=== PATIENT | female | born 1985 | race Caucasian/White ===

== ENCOUNTER 2016-03-12 21:27 | Outpatient (CLI) | payer BC ==
[~2016-03-12] VITALS: Ht 170.2 cm; Wt 100.0 kg
[2016-03-12 21:40] VITALS: BP 136/76
== END 2016-03-12 22:40 | disposition home or self-care (01) ==
LOC: M LDO 21:27
PROVIDERS: ATTEND Advanced Practice Midwife
DX: O26.893 Other specified pregnancy related conditions, third trimester (principal); N89.8 Other specified noninflammatory disorders of vagina; R10.2 Pelvic and perineal pain; Z3A.37 37 weeks gestation of pregnancy

== ENCOUNTER 2016-03-17 18:18 | Inpatient (IN) | payer BC ==
[~2016-03-17] VITALS: Ht 170.2 cm; Wt 102.0 kg
[2016-03-17] MEDS ORDERED: LR 1,000 ML IV SCH (18:28)
[2016-03-17] MEDS ORDERED: LACTATED RINGER'S 1000 ML IV STA (18:28)
--- NOTE | 2016-03-17 19:16 | HPE ---
DATE OF ADMISSION: 03/17/2016 30-year-old 1, estimated date of delivery 03/17/2016 presents at 40 weeks with reports of uterine contractions since 0530. Spontaneous rupture of membranes, clear fluid at 1700. Denies bleeding. Fetus is active. Last normal menstrual period 06/11/2015 for SIN of 03/17/2016. Sonogram at 8 weeks confirmed date. Anatomy scan within normal limits. ALLERGIES: No known drug allergies. MEDICAL-SURGICAL HISTORY: Anxiety, seasonal allergies and foot surgery. FAMILY HISTORY: Diabetes, multiple myeloma. SOCIAL HISTORY: . Father of the baby present and supportive. Denies tobacco, alcohol or drugs. OBJECTIVE: Prepregnancy weight 172, total weight gain 60 pounds. A+, antibody negative, rubella immune, VDRL, hepatis B, hepatitis C, HIV, gonorrhea, Chlamydia all negative. Quad screen normal. 1-hour glucose 141. 3-hour within normal limits. 89, 171, 63 and 83. Group B strep is negative. Vital signs are stable. She is very uncomfortable. Heart rate is regular. Breathing with contractions. Abdomen is soft, gravid, longitudinal lie. Contractions every 3 minutes for 90 seconds and moderate. heart 120, minimal to moderate variability. Cervix is 7 cm, 100%, zero station, clear fluid draining per vagina. ASSESSMENT: Primipara at term, spontaneous rupture of membranes, active labor, category two tracing. PLAN: Admit. The patient plans epidural. Close observation. Anticipate vaginal delivery.
[2016-03-17 19:17] LABS: MEAN CORPUSCULAR HEMOGLOBIN 26.4 pg (27.0-33.0); MEAN CORPUSCULAR HGB CONC 33.3 g/dl (32.0-36.5); MEAN CORPUSCULAR VOLUME 79.2 fl (80.0-96.0); RED CELL DISTRIBUTION WIDTH 15.5 % (11.5-14.5)
[2016-03-17] MEDS ORDERED: OXYTOCIN 30 UNITS IN 0.9% NaCl 500ML IV BAG (J2590) As Ordered ONE (19:23)
[2016-03-17] MEDS ORDERED: RANI1TAB38 PO (19:36)
[2016-03-17] MEDS ORDERED: OXYTOCIN DRIP 30 UNITS in APPROPRIATE DILUENT 1 EA IV SCH (20:49)
[2016-03-17] MEDS ORDERED: METHYLERGONOVINE MALEATE 0.2 MG TAB PO PRN (21:00)
[2016-03-17] MEDS ORDERED: RHOGAM 300 MCG (1500 IU) INJ (J2790) IM SCH (21:00)
[2016-03-17] MEDS ORDERED: ACETAMINOPHEN 500 MG TAB PO PRN (21:00)
[2016-03-17] MEDS ORDERED: DOCUSATE SODIUM 100 MG CAP PO PRN (21:00)
[2016-03-17] MEDS ORDERED: DIBUCAINE 1% OINTMENT 30GM TOP PRN (21:00)
[2016-03-17] MEDS ORDERED: ANUSOL HC CREAM 30GM TOP PRN (21:00)
[2016-03-17] MEDS ORDERED: MOM 30ML SUSPENSION UDC PO PRN (21:00)
[2016-03-17] MEDS ORDERED: LIDOCAINE 1% MDV INJ 50 ML VIAL INFIL ONE (21:00)
[2016-03-17] MEDS ORDERED: MEASLES,MUMPS,RUBELLA VACCINE INJ (MMR-II) (90707) SC SCH (21:00)
[2016-03-17 21:54] LABS: CORD GAS ABE A -7.6; CORD GAS ABE V -9.7; CORD GAS HCO3 A 18.1 MEQ/L; CORD GAS HCO3 V 16.1 MEQ/L; CORD GAS O2 SAT A 84.3 %; CORD GAS O2 SAT V 83.6 %; CORD GAS PCO2 A 37.9 mmHg; CORD GAS PCO2 V 35.6 mmHg; CORD GAS PH A 7.297 UNITS; CORD GAS PH V 7.273 UNITS; CORD GAS PO2 A 44.6 mmHg; CORD GAS PO2 V 44.1 mmHg; CORD GAS SBC A 18.1 MEQ/L; CORD GAS SBC V 16.6 MEQ/L; CORD GAS TCO2 A 19.3 MEQ/L; CORD GAS TCO2 V 17.2 MEQ/L
[2016-03-17 22:06] VITALS: BP 136/80
[2016-03-17] MEDS: IBUPROFEN 800 MG TAB PO PRN (22:46)
--- NOTE | 2016-03-18 00:23 | DN ---
DATE: 03/17/2016 A 30-year-old 1, now para 1 at 40 weeks gestation, spontaneous rupture of membranes, clear fluid at 1700 hours. Rapid progress. Fully dilated 1907 hours. Viable male delivered, left occiput anterior (ZAC) after reduction of loose nuchal cord, compound with right anterior arm at 2010 hours. Spontaneous respirations. Transitioned on maternal abdomen. Cord doubly clamped and cut once pulsations ceased. scores 9 and 9. Cord gases were obtained. Placenta [place] and intact with a three-vessel cord at 2018 hours. Fundus firmed with massage and IV Pitocin bolus. Estimated blood loss 300 mL. Second-degree perineal laceration repaired after infiltration with lidocaine using #3-0 Vicryl Rapide. Bilateral labial abrasions tacked with a single suture of same material each. Sponge, sharp and instrument count correct. weight 7 pounds 12 ounces, 3516 grams. Mom and baby doing well.
[2016-03-18 06:34] VITALS: BP 116/64
[2016-03-18] MEDS: FAMOTIDINE 20 MG TAB PO SCH ×2 (08:43→21:56)
[2016-03-18] MEDS: IBUPROFEN 800 MG TAB PO PRN ×2 (08:43→18:04)
[2016-03-18] MEDS: PRENATAL VITAMIN TAB PO SCH (08:43)
[2016-03-18 18:00] VITALS: BP 139/79
[2016-03-19 05:42] VITALS: BP 125/65
[2016-03-19] MEDS: FAMOTIDINE 20 MG TAB PO SCH (08:42)
[2016-03-19] MEDS: PRENATAL VITAMIN TAB PO SCH (08:42)
[2016-03-19] MEDS ORDERED: ACET50TA PO (09:14)
[2016-03-19] MEDS ORDERED: IBUP-1114 PO (09:15)
[2016-03-19] MEDS ORDERED: XANA0.25 PO (10:09)
[2016-03-19] MEDS ORDERED: ALPRAZolam 0.25 MG TAB PO PRN (10:15)
== END 2016-03-19 10:50 | disposition home or self-care (01) | DRG 560 ==
LOC: M LDI 18:18 → M OBS 21:49
PROVIDERS: ADMIT Advanced Practice Midwife; ATTEND Advanced Practice Midwife
PROC: 10E0XZZ Delivery of Products of Conception, External Approach (ICD-10-PCS; principal; 2016-03-17)
PROC: 0KQM0ZZ Repair Perineum Muscle, Open Approach (ICD-10-PCS; 2016-03-17)
DX: O48.0 Post-term pregnancy (principal); Z37.0 Single live birth; Z3A.40 40 weeks gestation of pregnancy; Z83.3 Family history of diabetes mellitus; O69.82X0 Labor and delivery complicated by other cord entanglement, without compression, not applicable or unspecified; O70.1 Second degree perineal laceration during delivery

== ENCOUNTER → 2016-08-23 | Outpatient (REF) | payer BC ==
[~2016-08-23] MED LIST: ACET50TA PO; IBUP-1114 PO; RANI1TAB38 PO; XANA0.25 PO
== END ==
LOC: M SFHCWAGY 15:06
PROVIDERS: ATTEND Nurse Practitioner Family
DX: Z12.4 Encounter for screening for malignant neoplasm of cervix (principal)

== ENCOUNTER → 2016-10-21 | Outpatient (CLI) | payer BC ==
[2016-10-21 09:01] LABS: BASO % 0.7 % (0.0-1.0); EOS # 0.1 K/mm3 (0.0-0.50); EOS % 2.1 % (0.0-3.0); LARGE UNSTAINED CELL # 0.1 K/mm3 (0.0-0.4); LARGE UNSTAINED CELL % 2.2 % (0.0-4.0); LYMPH # 2.4 K/mm3 (1.5-4.5); LYMPH % 35.3 % (24.0-44.0); MEAN CORPUSCULAR HEMOGLOBIN 26.3 pg (27.0-33.0); MEAN CORPUSCULAR HGB CONC 32.9 g/dl (32.0-36.5); MONO # 0.3 K/mm3 (0.0-0.8); NEUTROPHILS # 3.6 K/mm3 (1.8-7.7); NEUTROPHILS % 54.7 % (36.0-66.0); PLATELET COUNT, AUTOMATED 295 k/mm3 (150-450); RED CELL DISTRIBUTION WIDTH 14.4 % (11.5-14.5); WHITE BLOOD COUNT 6.5 K/mm3 (4.0-10.0)
[2016-10-21 11:46] LABS: VITAMIN B12 LEVEL 249 PG/ML
[2016-10-21 12:32] LABS: ALBUMIN 3.8 GM/DL (3.2-5.2); ALBUMIN/GLOBULIN RATIO 1.09 (1.00-1.93); ALKALINE PHOSPHATASE 71 U/L (45-117); ALT/SGPT 16 U/L (12-78); ANION GAP 10 MEQ/L (8-16); AST/SGOT 9 U/L (15-37); BILIRUBIN,TOTAL 0.3 MG/DL (0.2-1.0); BLOOD UREA NITROGEN 14 MG/DL (7-18); CALCIUM LEVEL 8.7 MG/DL (8.5-10.1); CARBON DIOXIDE LEVEL 24 MEQ/L (21-32); CHLORIDE LEVEL 110 MEQ/L (98-107); CHOLESTEROL LEVEL 178 MG/DL (<200); CREATININE FOR GFR 0.69 MG/DL (0.55-1.02); FREE T4 0.98 NG/DL (0.76-1.46); GLOMERULAR FILTRATION RATE > 60.0 (>60); GLUCOSE, FASTING 91 MG/DL (70-105); PERCENT SATURATION 13.2 % (13.2-45.0); POTASSIUM SERUM 4.1 MEQ/L (3.5-5.1); SODIUM LEVEL 144 MEQ/L (136-145); TOTAL IRON BINDING CAPACITY 342 UG/DL (250-450); TOTAL PROTEIN 7.3 GM/DL (6.4-8.2); TRIGLYCERIDES LEVEL 75 MG/DL (<150)
== END ==
LOC: M WUC 08:03
PROVIDERS: ATTEND Nurse Practitioner Family
DX: R53.83 Other fatigue (principal); E61.1 Iron deficiency

== ENCOUNTER → 2017-01-24 | Outpatient (CLI) | payer BC | LOC: M WUC 11:06 | PROVIDERS: ATTEND Nurse Practitioner Family | DX: E61.1 Iron deficiency (principal) ==

== ENCOUNTER → 2017-02-18 | Outpatient (CLI) | payer BC | LOC: M ADAMS 12:53 | PROVIDERS: ATTEND Physician Assistant Medical | DX: J02.9 Acute pharyngitis, unspecified (principal) ==

== ENCOUNTER → 2017-07-17 | Outpatient (REF) | payer BC ==
[2017-07-17 19:18] LABS: BASO % 0.3 % (0.0-1.0); EOS % 0.3 % (0.0-3.0); HEMATOCRIT 39.8 % (36.0-47.0); IMMATURE GRANULOCYTE % 0.4 % (0-3.0); LYMPH # 3.2 10^3/uL (1.5-4.5); LYMPH % 27.5 % (24.0-44.0); MEAN CORPUSCULAR HEMOGLOBIN 27.3 pg (27.0-33.0); MEAN CORPUSCULAR HGB CONC 32.7 g/dl (32.0-36.5); MEAN CORPUSCULAR VOLUME 83.4 fl (80.0-96.0); MONO # 0.7 10^3/uL (0.0-0.8); NEUTROPHILS # 7.6 10^3/uL (1.8-7.7); NEUTROPHILS % 65.5 % (36.0-66.0); PLATELET COUNT, AUTOMATED 359 10^3/uL (150-450); RED BLOOD COUNT 4.77 10^6/uL (4.00-5.40); RED CELL DISTRIBUTION WIDTH 14.7 % (11.5-14.5); WHITE BLOOD COUNT 11.7 10^3/uL (4.0-10.0)
[2017-07-17 19:32] LABS: ALBUMIN 4.6 GM/DL (3.2-5.2); ALBUMIN/GLOBULIN RATIO 1.24 (1.00-1.93); ALKALINE PHOSPHATASE 70 U/L (45-117); ALT/SGPT 17 U/L (12-78); ANION GAP 9 MEQ/L (8-16); AST/SGOT 10 U/L (7-37); BILIRUBIN,TOTAL 0.5 MG/DL (0.2-1.0); BLOOD UREA NITROGEN 10 MG/DL (7-18); CALCIUM LEVEL 9.4 MG/DL (8.5-10.1); CARBON DIOXIDE LEVEL 25 MEQ/L (21-32); CHLORIDE LEVEL 107 MEQ/L (98-107); CREATININE FOR GFR 0.68 MG/DL (0.55-1.30); GLOMERULAR FILTRATION RATE > 60.0 (>60); GLUCOSE, FASTING 84 MG/DL (70-100); POTASSIUM SERUM 3.8 MEQ/L (3.5-5.1); SODIUM LEVEL 141 MEQ/L (136-145); TOTAL PROTEIN 8.3 GM/DL (6.4-8.2)
== END ==
LOC: M LAB REF 18:46
DX: R53.83 Other fatigue (principal)
CPT/HCPCS: 80053

== ENCOUNTER → 2017-07-23 | Outpatient (CLI) | payer BC ==
[2017-07-23 17:36] LABS: AMYLASE 31 U/L (25-115)
[2017-07-23 17:36] LABS: LIPASE 138 U/L (73-393)
== END ==
LOC: M ADAMS 09:22
DX: R19.7 Diarrhea, unspecified (principal); R10.9 Unspecified abdominal pain
CPT/HCPCS: 82150

== ENCOUNTER → 2017-09-13 | Outpatient (CLI) | payer BC | LOC: M RAD 07:14 | DX: R10.13 Epigastric pain (principal); R11.2 Nausea with vomiting, unspecified; R63.4 Abnormal weight loss | CPT/HCPCS: 76700 ==

== ENCOUNTER → 2017-09-20 | Outpatient (CLI) | payer BC | LOC: M RAD 07:36 | DX: R63.4 Abnormal weight loss (principal); R11.2 Nausea with vomiting, unspecified; R10.31 Right lower quadrant pain | CPT/HCPCS: J2805 ==

== ENCOUNTER → 2017-11-09 | Outpatient (CLI) | payer BC | LOC: M RAD 07:25 | DX: R10.13 Epigastric pain (principal); R11.2 Nausea with vomiting, unspecified | CPT/HCPCS: 78264 ==

== ENCOUNTER → 2017-11-28 | Outpatient (CLI) | payer BC | LOC: M WHC 10:16 | DX: N94.10 Unspecified dyspareunia (principal); Z87.42 Personal history of other diseases of the female genital tract; R10.2 Pelvic and perineal pain | CPT/HCPCS: 76830 ==

== ENCOUNTER → 2017-11-28 | Outpatient (REF) | payer BC | LOC: M SFHCWAGY 10:07 | DX: Z12.4 Encounter for screening for malignant neoplasm of cervix (principal) ==

== ENCOUNTER → 2018-11-07 | Outpatient (REF) | payer BC ==
[~2018-11-07] MED LIST changes: -ACET50TA PO; +MAPA500T2 PO
[2018-11-07 20:15] LABS: BASO % 0.4 % (0.0-1.0); EOS # 0.1 10^3/uL (0.0-0.5); EOS % 1.4 % (0.0-3.0); HEMATOCRIT 38.8 % (36.0-47.0); HEMOGLOBIN 12.2 g/dl (12.0-15.5); LYMPH # 3.2 10^3/uL (1.5-5.0); MEAN CORPUSCULAR HEMOGLOBIN 27.5 pg (27.0-33.0); MEAN CORPUSCULAR HGB CONC 31.4 g/dl (32.0-36.5); MEAN CORPUSCULAR VOLUME 87.4 fl (80.0-96.0); MONO # 0.6 10^3/uL (0.0-0.8); MONO % 6.8 % (0.0-5.0); NEUTROPHILS # 4.5 10^3/uL (1.5-8.5); NEUTROPHILS % 53.2 % (36.0-66.0); PLATELET COUNT, AUTOMATED 303 10^3/uL (150-450); RED BLOOD COUNT 4.44 10^6/uL (4.00-5.40); WHITE BLOOD COUNT 8.4 10^3/uL (4.0-10.0)
[2018-11-07 20:20] LABS: ALBUMIN 4.3 GM/DL (3.2-5.2); ALT/SGPT 18 U/L (12-78); BILIRUBIN,TOTAL 0.3 MG/DL (0.2-1.0); BLOOD UREA NITROGEN 18 MG/DL (7-18); C REACTIVE PROTEIN QUANTITATIV < 0.30 MG/DL (0.00-0.30); CARBON DIOXIDE LEVEL 27 MEQ/L (21-32); CHLORIDE LEVEL 107 MEQ/L (98-107); CREATININE FOR GFR 0.67 MG/DL (0.55-1.30); GLOMERULAR FILTRATION RATE > 60.0 (>60); GLUCOSE, FASTING 75 MG/DL (70-100); POTASSIUM SERUM 3.9 MEQ/L (3.5-5.1); SODIUM LEVEL 139 MEQ/L (136-145); TOTAL PROTEIN 7.5 GM/DL (6.4-8.2)
[2018-11-07 20:30] LABS: VITAMIN B12 LEVEL 385 PG/ML (247-911)
[2018-11-11 08:06] LABS: ANGIOTENSIN 1 CONVERTING ENZYM 22 U/L (14-82); ANTINUCLEAR ANTIBODIES DIRECT Negative (Negative); ENDOMYSIAL ABY IgA Negative (Negative); F002-IgE Milk < 0.10 kU/L (Class 0); F004-IgE Wheat < 0.10 kU/L (Class 0); F013-IgE Peanut < 0.10 kU/L (Class 0); F014-IgE Soybean < 0.10 kU/L (Class 0); F026-IgE Pork < 0.10 kU/L (Class 0); F027-IgE Beef < 0.10 kU/L (Class 0); F245-IgE Egg, Whole < 0.10 kU/L (Class 0); FX02-IgE Food Mix (Sea Foods) Negative (.); TISSUE TRANSGLUTAMINASE IgA <2 U/mL (0-3); TISSUE TRANSGLUTAMINASE IgG <2 U/mL (0-5)
== END ==
LOC: M LABDRWAD 19:27 → M LABDRAW1 19:27
PROVIDERS: ATTEND Internal Medicine Gastroenterology
DX: R21 Rash and other nonspecific skin eruption (principal); K44.9 Diaphragmatic hernia without obstruction or gangrene; K21.9 Gastro-esophageal reflux disease without esophagitis; K31.84 Gastroparesis; K58.9 Irritable bowel syndrome, unspecified

== ENCOUNTER → 2018-11-11 | Outpatient (REF) | payer BC | LOC: M LAB REF 09:24 | PROVIDERS: ATTEND Family Medicine | DX: R21 Rash and other nonspecific skin eruption (principal); K21.9 Gastro-esophageal reflux disease without esophagitis; K44.9 Diaphragmatic hernia without obstruction or gangrene; K31.84 Gastroparesis; K58.9 Irritable bowel syndrome, unspecified ==

== ENCOUNTER → 2018-12-11 | Outpatient (CLI) | payer BC ==
--- NOTE | 2018-12-11 16:17 | REP ---
Right hip: Two views. History: Right hip pain. Findings: AP and frog-leg views of the right hip demonstrate smooth rounded femoral head and intact hip joint space. Periarticular soft tissues are unremarkable. Impression: Negative right hip radiographs. Electronically Signed by Herbert Nunez MD 12/11/2018 10:29 A
== END ==
LOC: M ADAMS 09:45
PROVIDERS: ATTEND Family Medicine
DX: M25.551 Pain in right hip (principal)

== ENCOUNTER 2019-11-23 08:03 | Emergency (ER) | payer BC ==
[~2019-11-23] VITALS: Ht 198.1 cm; Wt 74.3 kg
[2019-11-23] MEDS ORDERED: MULTTAB20 PO (08:17)
[2019-11-23 08:49] LABS: HEMATOCRIT 38.6 % (36.0-47.0); HEMOGLOBIN 12.3 g/dl (12.0-15.5); MEAN CORPUSCULAR HGB CONC 31.9 g/dl (32.0-36.5); MEAN CORPUSCULAR VOLUME 87.9 fl (80.0-96.0); PLATELET COUNT, AUTOMATED 273 10^3/uL (150-450); RED BLOOD COUNT 4.39 10^6/uL (4.00-5.40); WHITE BLOOD COUNT 7.3 10^3/uL (4.0-10.0)
[2019-11-23 08:58] LABS: APPEARANCE, URINE CLEAR (CLEAR); BACTERIA, URINE AUTO 1+ (NEGATIVE); BILIRUBIN, URINE AUTO NEGATIVE (NEGATIVE); BLOOD, URINE BLOOD 3+ (NEGATIVE); COLOR, URINE STRAW (YELLOW); GLUCOSE, URINE (UA) AUTO NEGATIVE (NEGATIVE); KETONE, URINE AUTO NEGATIVE (NEGATIVE); LEUKOCYTE ESTERASE, URINE AUTO NEGATIVE (NEGATIVE); NITRITE, URINE AUTO NEGATIVE (NEGATIVE); PROTEIN, URINE AUTO NEGATIVE (NEGATIVE); RBC, URINE AUTO 3 /HPF (0-3); SPECIFIC GRAVITY URINE AUTO 1.004 (1.002-1.035); SQUAMOUS EPITHELIAL CELL UR AU 3 /HPF (0-6); UROBILINOGEN, URINE AUTO 0.2 mg/dL (0.0-2.0); WBC, URINE AUTO 4 /HPF (0-3)
[2019-11-23] MEDS ORDERED: KEFL500C17 PO (09:37)
--- NOTE | 2019-11-23 10:24 | REPVR ---
PROCEDURE INFORMATION: Exam: US First Trimester, Transabdominal and US , Transvaginal Exam date and time: 11/23/2019 9:53 AM Age: 34 years old Clinical indication: Gestational age (in weeks): 7 weeks 5 days; Other: Vaginal bleeding; ; Additional info: Vaginal bleeding, , rule out ectopic . Beta-hCG 5239. TECHNIQUE: Imaging protocol: Real-time transabdominal obstetrical ultrasound of the maternal pelvis and a first trimester , less than 14 weeks 0 days, with image documentation. Transvaginal imaging was used for better evaluation of the fetus and adnexa. COMPARISON: PELVIS NON-OB COMPLETE US 11/28/2017 10:23:53 AM FINDINGS: Gestation: An ovoid anechoic fluid collection with echogenic rim is present within the uterine fundus endometrial cavity, most likely representing a gestational sac. Mean gestational sac diameter = 1.2 cm. No yolk sac is identified within the gestational sac. No pole is identified within the gestational sac. BIOMETRY: Gestational age (AUA): 5 weeks 6 days, based on mean gestational sac diameter. MATERNAL: Uterus: The uterus measures 8.1 x 4.3 x 5 cm. Cervix: The visualized cervix is unremarkable. Right adnexa: The right ovary measures 2.5 x 3.2 x 2.2 cm. The right ovary demonstrates color Doppler blood flow. The right ovary demonstrates spectral Doppler blood flow with arterial waveform. The right ovary contains a mildly heterogeneous echogenic 2.5 x 1.5 x 1.8 cm mass with peripheral color Doppler flow which is nonspecific but probably represents a corpus luteum. Left adnexa: The left ovary measures 2 x 3 x 1.3 cm. The left ovary demonstrates color Doppler blood flow. The left ovary demonstrates spectral Doppler blood flow with arterial waveform. The left ovary demonstrates spectral Doppler blood flow with venous waveform. No left adnexal mass. Intraperitoneal space: No free intraperitoneal fluid is imaged. IMPRESSION: 1. An intrauterine fluid collection is present most likely representing an early intrauterine gestational sac. No yolk sac or pole is identified. The findings are compatible with intrauterine of uncertain viability. Short-term follow-up beta-hCG and ultrasound is recommended. 2. Right ovarian 2.5 cm mass is nonspecific but probably represents a corpus luteum. Electronically signed by: Nazario Simon On 11/23/2019 10:24:30 AM
[2019-11-23 10:58] LABS: CHLAMYDIA DNA AMPLIFICATION NEGATIVE (NEGATIVE); GC DNA AMPLIFICATION NEGATIVE (NEGATIVE)
[2019-11-23 11:25] VITALS: BP 121/91
== END 2019-11-23 11:34 | disposition home or self-care (01) ==
LOC: M ED 08:03
DX: O23.91 Unspecified genitourinary tract infection in pregnancy, first trimester (principal); O46.91 Antepartum hemorrhage, unspecified, first trimester; Z3A.01 Less than 8 weeks gestation of pregnancy

== ENCOUNTER → 2019-11-25 | Outpatient (REF) | payer BC ==
[~2019-11-25] MED LIST changes: +KEFL500C17 PO; +MULTTAB20 PO
== END ==
LOC: M LABDRWAD 12:36
PROVIDERS: ATTEND Emergency Medicine
DX: Z32.00 Encounter for pregnancy test, result unknown (principal)

== ENCOUNTER → 2019-11-28 | Outpatient (REF) | payer BC | LOC: M LABDRAWC 12:17 → M LABDRWAD 12:17 | PROVIDERS: ATTEND Family Medicine | DX: O20.0 Threatened abortion (principal) ==

== ENCOUNTER → 2019-12-05 | Outpatient (REF) | payer BC ==
[2019-12-05 13:30] LABS: BASO # 0.1 10^3/uL (0.0-0.2); BASO % 0.5 % (0.0-1.0); EOS # 0.2 10^3/uL (0.0-0.5); EOS % 1.6 % (0.0-3.0); HEMATOCRIT 37.2 % (36.0-47.0); LYMPH # 2.5 10^3/uL (1.5-5.0); MEAN CORPUSCULAR HEMOGLOBIN 28.2 pg (27.0-33.0); MEAN CORPUSCULAR HGB CONC 32.3 g/dl (32.0-36.5); MEAN CORPUSCULAR VOLUME 87.3 fl (80.0-96.0); MONO # 0.6 10^3/uL (0.0-0.8); MONO % 5.4 % (0.0-5.0); NEUTROPHILS # 7.4 10^3/uL (1.5-8.5); NEUTROPHILS % 69.1 % (36.0-66.0); PLATELET COUNT, AUTOMATED 299 10^3/uL (150-450); RED BLOOD COUNT 4.26 10^6/uL (4.00-5.40); WHITE BLOOD COUNT 10.8 10^3/uL (4.0-10.0)
== END ==
LOC: M SFHCADAM 12:45
PROVIDERS: ATTEND Family Medicine
DX: O03.9 Complete or unspecified spontaneous abortion without complication (principal)

== ENCOUNTER → 2019-12-11 | Outpatient (REF) | payer BC | LOC: M SFHCADAM 11:20 | PROVIDERS: ATTEND Family Medicine | DX: O03.9 Complete or unspecified spontaneous abortion without complication (principal) ==

== ENCOUNTER → 2019-12-19 | Outpatient (REF) | payer BC | LOC: M SFHCADAM 11:07 | PROVIDERS: ATTEND Family Medicine | DX: O03.9 Complete or unspecified spontaneous abortion without complication (principal) ==

== ENCOUNTER → 2020-04-14 | Outpatient (REF) | payer BC | LOC: M SFHCWAGY 09:53 | PROVIDERS: ATTEND Nurse Practitioner Women's Health | DX: Z12.4 Encounter for screening for malignant neoplasm of cervix (principal); Z01.419 Encounter for gynecological examination (general) (routine) without abnormal findings | CPT/HCPCS: 87624; G0123 ==

== ENCOUNTER → 2020-07-13 | Outpatient (REF) | payer BC ==
[2020-07-13 13:22] LABS: FREE T4 0.8 NG/DL (0.76-1.46); THYROID STIMULATING HORMONE 1.7 uIU/ML (0.358-3.740)
== END ==
LOC: M SFHCADAM 11:06
PROVIDERS: ATTEND Family Medicine
DX: F41.9 Anxiety disorder, unspecified (principal)

== ENCOUNTER → 2020-12-10 | Outpatient (REF) | payer BC ==
[2020-12-10 17:03] LABS: APPEARANCE, URINE CLEAR (CLEAR); BACTERIA, URINE AUTO NEGATIVE (NEGATIVE); BILIRUBIN, URINE AUTO NEGATIVE (NEGATIVE); BLOOD, URINE BLOOD 2+ (NEGATIVE); COLOR, URINE YELLOW (YELLOW); GLUCOSE, URINE (UA) AUTO NEGATIVE (NEGATIVE); KETONE, URINE AUTO 1+ mg/dL (NEGATIVE); LEUKOCYTE ESTERASE, URINE AUTO NEGATIVE (NEGATIVE); MUCUS, URINE SMALL (NEGATIVE); NITRITE, URINE AUTO NEGATIVE (NEGATIVE); PROTEIN, URINE AUTO NEGATIVE (NEGATIVE); RBC, URINE AUTO 2 /HPF (0-3); SPECIFIC GRAVITY URINE AUTO 1.012 (1.002-1.035); SQUAMOUS EPITHELIAL CELL UR AU 0 /HPF (0-6); UROBILINOGEN, URINE AUTO 0.2 mg/dL (0.0-2.0); WBC, URINE AUTO 0 /HPF (0-3)
[2020-12-10 17:26] LABS: HEMATOCRIT 38.7 % (36.0-47.0); HEMOGLOBIN 12.7 g/dl (12.0-15.5); MEAN CORPUSCULAR HGB CONC 32.8 g/dl (32.0-36.5); MEAN CORPUSCULAR VOLUME 85.2 fl (80.0-96.0); PLATELET COUNT, AUTOMATED 275 10^3/uL (150-450); RED BLOOD COUNT 4.54 10^6/uL (4.00-5.40); WHITE BLOOD COUNT 7.7 10^3/uL (4.0-10.0)
[2020-12-10 18:42] LABS: ALBUMIN 4.5 GM/DL (3.2-5.2); ALT/SGPT 21 U/L (12-78); BILIRUBIN,TOTAL 0.3 MG/DL (0.2-1.0); BLOOD UREA NITROGEN 12 MG/DL (7-18); CALCIUM LEVEL 9.3 MG/DL (8.5-10.1); CARBON DIOXIDE LEVEL 26 MEQ/L (21-32); CHLORIDE LEVEL 104 MEQ/L (98-107); CREATININE FOR GFR 0.74 MG/DL (0.55-1.30); GLOMERULAR FILTRATION RATE > 60.0 (>60); GLUCOSE, FASTING 70 MG/DL (70-100); LIPASE 106 U/L (73-393); POTASSIUM SERUM 3.8 MEQ/L (3.5-5.1); SODIUM LEVEL 138 MEQ/L (136-145); TOTAL PROTEIN 7.8 GM/DL (6.4-8.2)
== END ==
LOC: M SFHCADAM 14:55
PROVIDERS: ATTEND Family Medicine
DX: R10.11 Right upper quadrant pain (principal)

== ENCOUNTER → 2020-12-11 | Outpatient (CLI) | payer BC ==
--- NOTE | 2020-12-11 15:09 | REP ---
INDICATION: RUQ ABDOMINAL PAIN COMPARISON: None TECHNIQUE: Axial noncontrast images from the lung bases to the pubic symphysis with coronal and sagittal reformations. This CT examination was performed using the following dose reduction techniques: Automated exposure control, adjustment of mA and/or kv according to the patient's size, and use of iterative reconstruction technique. FINDINGS: Lung bases are clear. Visualized heart and pericardium normal. Liver, spleen, pancreas, gallbladder, bilateral adrenal glands and kidneys are normal. The enteric system is unremarkable and without obstruction or acute inflammatory process. Normal terminal ileum and appendix identified in the right lower quadrant. Pelvis demonstrates normal bladder and age-appropriate uterus/adnexa. No ascites. No free air. No adenopathy. No focal inflammatory stranding. Abdominal aorta without aneurysm. Musculoskeletal structures are intact and without acute osseous abnormality. IMPRESSION: No acute abdominopelvic pathology appreciated. <Electronically signed by Skinny Addison > 12/11/20 [id number]
== END ==
LOC: M RAD 14:12
PROVIDERS: ATTEND Family Medicine
DX: R10.11 Right upper quadrant pain (principal)

== ENCOUNTER → 2021-05-26 | Outpatient (REF) | payer BC | LOC: M PLALAB 12:07 | PROVIDERS: ATTEND Obstetrics & Gynecology | DX: Z12.4 Encounter for screening for malignant neoplasm of cervix (principal) | CPT/HCPCS: 87624; G0123 ==

== ENCOUNTER → 2021-08-23 | Outpatient (CLI) | payer BC | LOC: M ADAMS 09:07 | PROVIDERS: ATTEND Family Medicine | DX: M54.31 Sciatica, right side (principal) ==

== ENCOUNTER → 2022-03-22 | Outpatient (CLI) | payer BC | LOC: M ADAMS 10:39 | PROVIDERS: ATTEND Family Medicine | DX: M79.675 Pain in left toe(s) (principal) ==

== ENCOUNTER → 2022-03-22 | Outpatient (REF) | payer BC ==
[2022-03-22 13:40] LABS: HEMATOCRIT 39.5 % (36.0-47.0); HEMOGLOBIN 12.7 g/dl (12.0-15.5); MEAN CORPUSCULAR HEMOGLOBIN 27.8 pg (27.0-33.0); MEAN CORPUSCULAR HGB CONC 32.2 g/dl (32.0-36.5); MEAN CORPUSCULAR VOLUME 86.4 fl (80.0-96.0); PLATELET COUNT, AUTOMATED 307 10^3/uL (150-450); RED BLOOD COUNT 4.57 10^6/uL (4.00-5.40); WHITE BLOOD COUNT 8.5 10^3/uL (4.0-10.0)
[2022-03-22 14:07] LABS: ALBUMIN 4.2 G/DL (3.2-5.2); ALKALINE PHOSPHATASE 57 U/L (46-116); ALT/SGPT 13 U/L (7.0-40); AST/SGOT 16 U/L (<34); BILIRUBIN,TOTAL 0.3 MG/DL (0.3-1.2); BLOOD UREA NITROGEN 15 MG/DL (9-23); CALCIUM LEVEL 9.6 MG/DL (8.5-10.1); CARBON DIOXIDE LEVEL 27 MMOL/L (20-31); CHLORIDE LEVEL 102 MMOL/L (98-107); CHOLESTEROL LEVEL 151 MG/DL (<200); CREATININE FOR GFR 0.72 MG/DL (0.55-1.30); GLOMERULAR FILTRATION RATE > 60.0 (>60); GLUCOSE, FASTING 86 MG/DL (60-100); HDL CHOLESTEROL 57.9 MG/DL (>40); LDL CHOLESTEROL 72.9 MG/DL (<100); NON-HDL-C 93 MG/DL; POTASSIUM SERUM 4.4 MMOL/L (3.5-5.1); SODIUM LEVEL 138 MMOL/L (136-145); TOTAL PROTEIN 7.3 G/DL (5.7-8.2); TRIGLYCERIDES LEVEL 101 MG/DL (<150)
[2022-03-22 14:11] LABS: FREE T4 0.94 NG/DL (0.89-1.76)
== END ==
LOC: M SFHCADAM 10:17
PROVIDERS: ATTEND Family Medicine
DX: L60.9 Nail disorder, unspecified (principal); M79.675 Pain in left toe(s); K58.2 Mixed irritable bowel syndrome; F41.9 Anxiety disorder, unspecified; Z13.220 Encounter for screening for lipoid disorders; Z13.6 Encounter for screening for cardiovascular disorders

== ENCOUNTER → 2022-05-11 | Outpatient (CLI) | payer BC | LOC: M ADAMS 08:07 | PROVIDERS: ATTEND Student in an Organized Health Care Education/Training Program | DX: J20.9 Acute bronchitis, unspecified (principal) ==

== ENCOUNTER → 2023-01-10 | Outpatient (REF) | payer BC | LOC: M LAB REF 10:18 | PROVIDERS: ATTEND Physician Assistant | DX: R30.0 Dysuria (principal) ==

== ENCOUNTER → 2023-04-19 | Outpatient (REF) | payer BC ==
[2023-04-19 14:02] LABS: BASO % 0.5 % (0.0-1.0); EOS # 0.3 10^3/uL (0.0-0.5); EOS % 3.6 % (0.0-3.0); HEMATOCRIT 38.2 % (36.0-47.0); HEMOGLOBIN 12.1 g/dl (12.0-15.5); LYMPH # 2.3 10^3/uL (1.5-5.0); LYMPH % 26.1 % (24.0-44.0); MEAN CORPUSCULAR HEMOGLOBIN 26.8 pg (27.0-33.0); MEAN CORPUSCULAR HGB CONC 31.7 g/dl (32.0-36.5); MEAN CORPUSCULAR VOLUME 84.5 fl (80.0-96.0); MONO # 0.6 10^3/uL (0.0-0.8); MONO % 7.4 % (2.0-8.0); NEUTROPHILS # 5.3 10^3/uL (1.5-8.5); NEUTROPHILS % 61.9 % (36.0-66.0); PLATELET COUNT, AUTOMATED 337 10^3/uL (150-450); RED BLOOD COUNT 4.52 10^6/uL (4.00-5.40); WHITE BLOOD COUNT 8.6 10^3/uL (4.0-10.0)
[2023-04-19 14:39] LABS: ALBUMIN 4.1 G/DL (3.2-5.2); ALKALINE PHOSPHATASE 66 U/L (46-116); ALT/SGPT 19 U/L (7.0-40); AST/SGOT 13 U/L (<34); BILIRUBIN,TOTAL 0.4 MG/DL (0.3-1.2); BLOOD UREA NITROGEN 14 MG/DL (9-23); CALCIUM LEVEL 8.7 MG/DL (8.5-10.1); CARBON DIOXIDE LEVEL 25 MMOL/L (20-31); CHLORIDE LEVEL 108 MMOL/L (98-107); CHOLESTEROL LEVEL 170 MG/DL (<200); CHOLESTEROL RISK RATIO 3.32 (<5); CREATININE FOR GFR 0.63 MG/DL (0.55-1.30); GLOMERULAR FILTRATION RATE > 60.0 (>60); GLUCOSE, FASTING 91 MG/DL (60-100); HDL CHOLESTEROL 51.2 MG/DL (>40); LDL CHOLESTEROL 103.2 MG/DL (<100); NON-HDL-C 118.8 MG/DL; SODIUM LEVEL 137 MMOL/L (136-145); TOTAL PROTEIN 6.8 G/DL (5.7-8.2); TRIGLYCERIDES LEVEL 78 MG/DL (<150)
[2023-04-19 14:41] LABS: THYROID STIMULATING HORMONE 1.965 uIU/ML (0.55-4.78)
== END ==
LOC: M SFHCADAM 08:30
PROVIDERS: ATTEND Family Medicine
DX: J45.20 Mild intermittent asthma, uncomplicated (principal); K58.2 Mixed irritable bowel syndrome; F41.9 Anxiety disorder, unspecified; Z13.220 Encounter for screening for lipoid disorders

== ENCOUNTER → 2023-05-17 | Outpatient (CLI) | payer BC | LOC: M SOG 08:09 | PROVIDERS: ATTEND Physician Assistant | DX: M25.521 Pain in right elbow (principal) ==

== ENCOUNTER → 2023-08-23 | Outpatient (REF) | payer BC ==
[2023-08-25 12:50] LABS: HPV APTIMA Not Detected (Not Detected)
== END ==
LOC: M SFHCWAGY 14:49
PROVIDERS: ATTEND Obstetrics & Gynecology
DX: Z12.4 Encounter for screening for malignant neoplasm of cervix (principal)
CPT/HCPCS: 87624; G0123

== ENCOUNTER → 2024-07-11 | Outpatient (REF) | payer BC ==
[2024-07-11 13:58] LABS: ALKALINE PHOSPHATASE 55 U/L (35-104); ALT/SGPT 15 U/L (7.0-40); AST/SGOT 10 U/L (<34); BILIRUBIN,TOTAL 0.5 MG/DL (0.3-1.2); BLOOD UREA NITROGEN 16 MG/DL (9-23); CALCIUM LEVEL 9.4 MG/DL (8.5-10.1); CARBON DIOXIDE LEVEL 26 MMOL/L (20-31); CHLORIDE LEVEL 104 MMOL/L (98-107); CHOLESTEROL LEVEL 169 MG/DL (<200); CHOLESTEROL RISK RATIO 3.95 (<5); CREATININE FOR GFR 0.78 MG/DL (0.55-1.30); FREE T4 1.01 NG/DL (0.89-1.76); GLOMERULAR FILTRATION RATE > 90.0 (>60); GLUCOSE, FASTING 96 MG/DL (60-100); HDL CHOLESTEROL 42.7 MG/DL (>40); LDL CHOLESTEROL 107.7 MG/DL (<100); NON-HDL-C 126.3 MG/DL; POTASSIUM SERUM 4.3 MMOL/L (3.5-5.1); SODIUM LEVEL 140 MMOL/L (136-145); THYROID STIMULATING HORMONE 2.856 uIU/ML (0.55-4.78); TRIGLYCERIDES LEVEL 93 MG/DL (<150)
[2024-07-11 13:59] LABS: FOLATE 9.72 NG/ML (>5.4); HEMATOCRIT 39.9 % (36.0-47.0); HEMOGLOBIN 12.5 g/dl (12.0-15.5); MEAN CORPUSCULAR HEMOGLOBIN 26.7 pg (27.0-33.0); MEAN CORPUSCULAR HGB CONC 31.3 g/dl (32.0-36.5); MEAN CORPUSCULAR VOLUME 85.1 fl (80.0-96.0); PLATELET COUNT, AUTOMATED 301 10^3/uL (150-450); RED BLOOD COUNT 4.69 10^6/uL (4.00-5.40); WHITE BLOOD COUNT 8.3 10^3/uL (4.0-10.0)
[2024-07-11 14:00] LABS: VITAMIN B12 LEVEL 263 PG/ML (211-911)
[2024-07-11 14:28] LABS: HEMOGLOBIN A1c 5.6 % (4.0-6.0)
== END ==
LOC: M SFHCADAM 07:50
PROVIDERS: ATTEND Family Medicine
DX: R06.2 Wheezing (principal); R53.83 Other fatigue; E78.5 Hyperlipidemia, unspecified